=== PATIENT | female | born 1960 | race African-American/Black ===

== ENCOUNTER 2016-12-23 11:53 | Emergency (ER) | payer OTHER ==
[2016-12-23 11:58] VITALS: TEMP 98.8; BMI 21.4
--- NOTE | 2016-12-23 13:13 | PDOC ---
Attending Attestation - Resident Resident Name: Mark Staples - ED Attending Attestation I have performed the following: I have examined & evaluated the patient, The case was reviewed & discussed with the resident, I agree w/resident's findings & plan, Exceptions are as noted
--- NOTE | 2016-12-23 13:44 | PDOC ---
History of Present Illness - General Chief Complaint: Palpitations Stated Complaint: IRREGULAR HEARTBEAT, HEADACHE Time Seen by Provider: 12/23/16 13:01 History Source: Patient Exam Limitations: No Limitations - History of Present Illness Initial Comments: 12/23/16 13:18 Patient is a 56F with newly diagnosed diabetes (on metformin) here today complaining with chest palpitations for the past 24 hours. She describes intermittent episodes of palpitations, which she further describes as feeling like her heart is missing a beat. She denies associated nausea, vomiting, fevers , chills, shortness of breath and chest pain. She does complain of an associated headache for the past 24 hours. She does not remember the onset of the headache and it's relieved with palpation. Past History - Past Medical History Allergies/Adverse Reactions: Allergies Allergy/AdvReac Type Severity Reaction Status Date / Time sulfamethoxazole Allergy Verified 12/23/16 11:54 [From Bactrim] trimethoprim [From Bactrim] Allergy Verified 12/23/16 11:54 Home Medications: Ambulatory Orders Metformin HCl 500 mg PO DAILY 12/23/16 COPD: No Diabetes: Yes Other medical history: SCIATICA - Suicide/Smoking/Psychosocial Hx Smoking History: Smoker current status UNK Information on smoking cessation initiated: No Hx Alcohol Use: No Drug/Substance Use Hx: No Substance Use Type: None Review of Systems - Review of Systems Comments:: 12/23/16 13:44 GENERAL/CONSTITUTIONAL: No fever or chills. No weakness. HEAD, EYES, EARS, NOSE AND THROAT: No change in vision. No ear pain or discharge. No sore throat. CARDIOVASCULAR: No chest pain or shortness of breath RESPIRATORY: No cough, wheezing, or hemoptysis. GASTROINTESTINAL: No nausea, vomiting, diarrhea or constipation. GENITOURINARY: No dysuria, frequency, or change in urination. MUSCULOSKELETAL: No joint or muscle swelling or pain. No neck or back pain. SKIN: No rash NEUROLOGIC: No headache, vertigo, loss of consciousness, or change in strength/ sensation. ENDOCRINE: No increased thirst. No abnormal weight change HEMATOLOGIC/LYMPHATIC: No anemia, easy bleeding, or history of blood clots. ALLERGIC/IMMUNOLOGIC: No hives or skin allergy. *Physical Exam - Vital Signs Last Vital Signs Temp Pulse Resp BP Pulse Ox 98.8 F 98 H 18 158/81 100 12/23/16 11:55 12/23/16 11:55 12/23/16 11:55 12/23/16 11:55 12/23/16 11:55 - Physical Exam Comments: 12/23/16 13:46 GENERAL: Awake, alert, and fully oriented, in no acute distress HEAD: No signs of trauma, normocephalic, atraumatic EYES: PERRLA, EOMI, sclera anicteric, conjunctiva clear ENT: Auricles normal inspection, hearing grossly normal, nares patent, oropharynx clear without exudates. Moist mucosa NECK: Normal ROM, supple, no lymphadenopathy, JVD, or masses LUNGS: No distress, speaks full sentences, clear to auscultation bilaterally HEART: Regular rate and rhythm, normal S1 and S2, no murmurs, rubs or gallops, peripheral pulses normal and equal bilaterally. ABDOMEN: Soft, nontender, normoactive bowel sounds. No guarding, no rebound. No masses EXTREMITIES: Normal inspection, Normal range of motion, no edema. No clubbing or cyanosis. NEUROLOGICAL: Cranial nerves II through XII grossly intact. Normal speech, normal gait, no focal sensorimotor deficits SKIN: Warm, Dry, normal turgor, no rashes or lesions noted. ED Treatment Course - LABORATORY CBC & Chemistry Diagram: 12/23/16 13:13 12/23/16 13:13 - RADIOLOGY Radiology Studies Ordered: Category Date Time Status CHEST PA & LAT [RAD] Stat Radiology 12/23/16 13:09 Ordered Medical Decision Making - Medical Decision Making 12/23/16 13:46 56F with history of DM here today with palpitations. Vital signs stable and normal. History atypical for ACS. Will do heart workup. EKG shows normal sinus arrhythmia with no st elevatins, depressions or t wave abnormalities. Normal intervals. Reassuring EKG. 12/23/16 14:16 CXR shows no acute cardiopulmonary process. 12/23/16 14:17 Laboratory Tests 12/23/16 12/23/16 13:13 13:13 WBC 8.5 Hgb 13.1 Hct 39.8 Plt Count 336 D Troponin I < 0.02 CBC normal. Trop negative. CMP shows glucose in low 200s. TSH pending. Patient is felling better. *DC/Admit/Observation/Transfer Diagnosis at time of Disposition: Palpitations - Discharge Dispostion Disposition: HOME Condition at time of disposition: Good Admit: No - Referrals Referrals: Sree Wilson [Primary Care Provider] - - Patient Instructions Printed Discharge Instructions: DI for Palpitations Additional Instructions: Please see your PCP this week. Please return if you have any new, worsening or concerning symptoms. -Dr Staples - Post Discharge Activity
[2016-12-23 14:00] LABS: BASOPHIL 0.6 % (0-2.0); EOSINOPHIL 0.6 % (0-4.5); MCH 30.4 pg (25.7-33.7); MEAN CELL VOLUME 92.1 fl (80-96); MEAN PLT VOLUME 8.3 fl (7.5-11.1); NEUTROPHILS 55.5 % (42.8-82.8); PLATELET COUNT 336 K/MM3 (134-434); RDW 14.3 % (11.6-15.6); WHITE BLOOD COUNT 8.5 K/mm3 (4.0-10.0)
[2016-12-23 14:02] LABS: ALBUMIN 4.1 g/dl (3.4-5.0); ANION GAP 12 (8-16); BILIRUBIN,TOTAL 0.9 mg/dL (0.2-1.0); CALCIUM 8.9 mg/dL (8.5-10.1); CO2 26 mmol/L (21-32); CREATININE 0.8 mg/dL (0.55-1.02); GLUCOSE,RANDOM 233 mg/dL (74-106); SGOT/AST 27 U/L (15-37); SGPT/ALT 79 U/L (12-78); TOT PROT 8.2 g/dl (6.4-8.2)
[2016-12-23 14:05] LABS: ALK PHOS 112 U/L (45-117); CPK 65 IU/L (26-192); TROPONIN I < 0.02 ng/ml (0.00-0.05)
[2016-12-23 14:59] LABS: THYROID STIMULATING HORMONE 1.52 uIU/ml (0.358-3.74)
[2016-12-23 15:48] VITALS: BP 144/64; PULSE 91
--- NOTE | 2016-12-23 17:23 | EKG ---
Test Reason : Blood Pressure : / mmHG Vent. Rate : 082 BPM Atrial Rate : 082 BPM P-R Int : 158 ms QRS Dur : 068 ms QT Int : 384 ms P-R-T Axes : 082 072 071 degrees QTc Int : 448 ms SINUS RHYTHM WITH MARKED SINUS ARRHYTHMIA BIATRIAL ENLARGEMENT ABNORMAL ECG WHEN COMPARED WITH ECG OF 19-AUG-2013 00:49, T WAVE AMPLITUDE HAS DECREASED IN LATERAL LEADS Confirmed by COMFORT RODARTE, WILDER ([id number]) on 12/23/2016 5:23:25 PM Referred By: Confirmed By:WILDER MOYER MD
== END 2016-12-23 15:50 | disposition home or self-care (01) ==
LOC: JER 11:53
DX: R00.2 Palpitations (principal); E11.9 Type 2 diabetes mellitus without complications; Z79.84 Long term (current) use of oral hypoglycemic drugs
CPT/HCPCS: 36415; 71020-TC; 80053; 82550; 84443; 84484; 85025; 93005; 93010; 99285-25

== ENCOUNTER 2018-03-07 10:24 | Emergency (ER) | payer SELFPAY ==
[2018-03-07 10:28] VITALS: TEMP 97.8; BMI 24.7
--- NOTE | 2018-03-07 10:54 | PDOC ---
Attending Attestation - HPI HPI: 03/07/18 11:02 The patient is a year 57 old female, with a significant past medical history of DM (on metformin), who presents to the emergency department with nausea, vomiting, and loose stool. that began this morning around 6:00 am. The patient reports feeling well yesterday but when she woke up this morning to have a bowel movement, she felt a sudden onset of nausea, followed by an episode of vomiting, nonbloody. The patient states she has experienced several episodes of vomiting today, as well as several episodes of soft loose stool. The patient reports diaphoresis during vomiting episodes. The patient notes abdominal pain that she only experiences after vomiting. The patient reports she cant tolerate PO intake and has not taken her medication secondary to vomiting. The patient also reports a headache, and sick contact, with her who had a cold earlier this week. She denies recent fevers, body aches, coughing, or wheezing. She denies recent constipation. She denies recent dysuria, frequency, urgency or hematuria. She denies recent chest pain or shortness of breath. She denies recent travel Allergies: sulfamethoxazole, trimethoprim <Dizenzo,Marsha - Last Filed: 03/07/18 12:14> - Resident Resident Name: Rashmi Lew - ED Attending Attestation I have performed the following: I have examined & evaluated the patient, The case was reviewed & discussed with the resident, I agree w/resident's findings & plan, Exceptions are as noted - Physicial Exam PE: 03/08/18 10:12 see above - Medical Decision Making 03/07/18 10:54 57y F hx of DM, presents with n/v since this AM with a few episodes of loose stool. endorses intermittent abd pain associated w vomitin gubt then resolves - no associated fever/chills, cp, sob, guevara, back pain, numbnes/tingling/weakness, recent travel. GENERAL: The patient is awake, alert, and fully oriented, Nontoxic - in no acute distress. HEAD: Normocephalic, atraumatic. EYES: extraocular movements intact, sclera anicteric, conjunctiva clear. ENT: Normal voice, Moist mucous membranes. NECK: Normal range of motion, supple LUNGS: Breath sounds equal, clear to auscultation bilaterally. No wheezes, no rhonchi, no rales. HEART: Regular rate and rhythm, normal S1 and S2 without murmur, rub or gallop. ABDOMEN: Soft, nontender, normoactive bowel sounds. No guarding, no rebound. No CVA tenderness EXTREMITIES: Normal range of motion, no edema. NEUROLOGICAL: No facial assymetry, Normal speech, PSYCH: Normal mood, normal affect. SKIN: Warm, Dry, normal turgor, ddx - enteritis, gastritis, consider cardiac etiology (episode occurred around 5am) will ck labs, fluids/zofran for sypmtmatic relief ekg/trop to r/o cardiac etiology will reasses 03/07/18 12:36 pt feeling improvd tolerating oral intake labs/lytes reviewd, bgm slightly elevated awaiting UA <Zach Armstrong - Last Filed: 03/08/18 10:12> Heart Score/ECG Review - ECG Impressions Comment:: 03/07/18 13:09 Twelve-lead EKG was performed and reviewed by me. There is normal sinus rhythm with a normal rate. Rate of 63 The axis is normal. The intervals are normal. There is normal R wave progression No ST changes suggestive of acute ischemia Marked Sinus arrhythmia <Zach Armstrong - Last Filed: 03/08/18 10:12> Attestations - Attestations 03/07/18 11:19 Documentation prepared by Marsha Ruffin, acting as medical lab technician for Zach Armstrong MD. <Marsha Ruffin - Last Filed: 03/07/18 12:14>
[2018-03-07] MEDS ORDERED: ONDANSETRON 4 MG/2 ML VIAL IVPUSH ONE (10:55)
[2018-03-07] MEDS ORDERED: ONDANSETRON 4 MG/2 ML VIAL ONE (10:55)
[2018-03-07] MEDS ORDERED: SODIUM CHLORIDE 0.9% 500 ML INFUS.BAG IV ONE (10:55)
--- NOTE | 2018-03-07 11:04 | PDOC ---
History of Present Illness - General Chief Complaint: Vomiting/Diarrhea Stated Complaint: VOMITING/DIARRHEA Time Seen by Provider: 03/07/18 10:30 - History of Present Illness Initial Comments: Princess Arias is a 57yo woman with a PMH of NIDDM who presents with nausea, vomiting, and loose stool since this morning. She reports that she woke up around 530 am to use the bathroom, and she started to feel nauseated. She had one episode of NBNB vomiting followed by multiple episodes of dry heaving or vomiting "bile" since then. She does report some mild diffuse abdominal pain and headache that she feels are secondary to vomiting. She tried to take ibuprofen at home but could not keep it down. She also reports trying to drink water, but she had an episode of emesis about 5 minutes later. Ms Arias denies recent sick contacts, change in diet (or unusual foods), recent travel, or new medications. She has been compliant with her metformin and says that her glucose is usually in the 120's at home, though she checks infrequently. She denies recent or frequent alcohol use. She denies chest pain, shortness of breath, association of symptoms with exertion, frequent/watery stools. Past History - Past Medical History Allergies/Adverse Reactions: Allergies Allergy/AdvReac Type Severity Reaction Status Date / Time sulfamethoxazole Allergy Verified 03/07/18 10:25 [From Bactrim] trimethoprim [From Bactrim] Allergy Verified 03/07/18 10:25 Home Medications: Ambulatory Orders metFORMIN HCL [Metformin HCl] 500 mg PO DAILY 12/23/16 Ondansetron HCl 4 mg PO TID PRN #12 tablet 03/07/18 COPD: No Diabetes: Yes - Immunization History Immunization Up to Date: Yes - Suicide/Smoking/Psychosocial Hx Smoking History: Never smoked Information on smoking cessation initiated: No Hx Alcohol Use: No Drug/Substance Use Hx: No Substance Use Type: None Review of Systems - Review of Systems Comments:: General: No fevers, no chills, no weight or appetite change, no malaise HEENT: No changes in vision, no changes in hearing, no congestion, no sore throat CV: No chest pain, no palpitations, no LE edema Pulm: No SOB, no cough, no wheezing GI: +n/v, no change in bowel habits, no melena : No frequency, no urgency, no dysuria Musc: No back pain, no joint swelling, no recent injury Skin: No rash, no lesions, no erythema Endo: No excessive thirst, no heat/cold intolerance Heme: No unusual bruising or bleeding, no swollen glands Neuro: No syncope, no numbness/tingling, no focal weakness Vasc: No claudication Psych: No recent change in mood, no SI or HI *Physical Exam - Vital Signs Last Vital Signs Temp Pulse Resp BP Pulse Ox 97.8 F 84 17 157/78 100 03/07/18 10:25 03/07/18 10:25 03/07/18 10:25 03/07/18 10:25 03/07/18 10:25 - Physical Exam Comments: General: No acute distress, uncomfortable HEENT: PERRL, EOMI, MMM, voice normal, normal neck ROM, no LAD Cards: RRR, no murmur appreciated Pulm: Comfortable on room air, clear to auscultation bilaterally Abd: Soft, nontender, nondistended : No CVA tenderness Ext: Atraumatic. No LE edema. ROM intact. Strength 5/5 and equal bilaterally Vasc: Extremities WWP. Skin: Normal color, no rashes or lesions Neuro: A&Ox3, CN grossly intact, normal speech, motor/sensory grossly intact and symmetric Psych: Mood appropriate to situation Moderate Sedation - Procedure Monitoring Vital Signs: Procedure Monitoring Vital Signs Temperature 97.8 F 03/07/18 10:25 Pulse Rate 84 03/07/18 10:25 Respiratory Rate 17 03/07/18 10:25 Blood Pressure 157/78 03/07/18 10:25 O2 Sat by Pulse Oximetry (%) 100 03/07/18 10:25 ED Treatment Course - LABORATORY CBC & Chemistry Diagram: 03/07/18 11:08 03/07/18 11:12 Medical Decision Making - Medical Decision Making 03/07/18 10:55 Princess Arias is a 57yo woman with a PMH of NIDDM who presents with nausea and vomiting since 5:30am. She does report a history of "gallbladder problems" but states that this is completely different. - DDx includes gastritis, hyperglycemia, cholecystitis, pancreatitis. - No chest pain, no SOB, no cardiac history concerning for cardiac causes of vomiting - No concern for SBO despite h/o as she continues to have BM - CBC, CMP, mag, phos, lipase - 1L NS and IV zofran for symptoms 03/07/18 11:18 - Discussed with Dr Armstrong, will add on troponin and EKG as she now reports diaphoresis earlier this morning. Symptoms are not exertional and w/o chest pain or SOB, so unlikely to be cardiac in nature, but will r/o given patient's age and gender. 03/07/18 12:34 - EKG completed. NSR w/ HR 63. Marked respiratory variation but other bal normal. - Labs reviewed. Notable for glucose 233. Trop 0.04 is WNL. - Patient feels significantly improved after zofran and IV fluids. Attempting PO challenge currently. Will d/c home if able to tolerate PO intake. Discussed with Dr Armstrong. Rashmi Lew PGY1 *DC/Admit/Observation/Transfer Diagnosis at time of Disposition: Vomiting - Discharge Dispostion Condition at time of disposition: Stable Decision to Admit order: No - Prescriptions Prescriptions: Ondansetron HCl 4 mg PO TID PRN #12 tablet PRN Reason: Nausea And/Or Vomiting - Referrals [place] [facility] [place] [facility] [place] Group] - Patient Instructions Printed Discharge Instructions: DI for Vomiting -- Adult Additional Instructions: Discharge Instructions: - You were seen in the emergency department for vomiting. You had blood tests to check for infection or electrolyte abnormalities, but the results were normal. You also had an EKG and blood test to check your heart, and these were normal as well. There were also no abnormalities on your urine test. - Your vomiting is most likely due to a virus or gastritis (stomach irritation) . This should improve within a few days. You have been prescribed a nausea medication that can be taken up to 8 times daily if needed. - Make sure you are staying hydrated at home. It is recommended that you drink clear fluids such as water, juice, tea, or broth. Avoid dairy products and caffeine. - Do not worry about eating as long as you stay hydrated. It is OK if you do not eat for a day or so. When you feel ready to eat again, avoid spicy or greasy foods. - Make an appointment to see your regular doctor within the next week if your symptoms do not improve. If you do not have a regular doctor, you have been referred to the [facility] internal medicine resident clinic. - Seek immediate medical care if your symptoms worsen, you are unable to keep any food or liquids down without vomiting, you start vomiting blood, you become lightheaded, you stop producing urine, or you have any medical emergency. - Post Discharge Activity
[2018-03-07 11:22] LABS: BASO % 0.8 % (0-2.0); EOS % 0.2 % (0-4.5); HEMATOCRIT 39.5 % (32.4-45.2); HEMOGLOBIN 13.3 GM/dL (10.7-15.3); LYMPH % 15.4 % (8-40); MCH 31.2 pg (25.7-33.7); MCHC 33.8 g/dl (32.0-36.0); MEAN CELL VOLUME 92.2 fl (80-96); MEAN PLT VOLUME 7.1 fl (7.5-11.1); MONO % 3.8 % (3.8-10.2); NEUT % 79.8 % (42.8-82.8); PLATELET COUNT 314 K/MM3 (134-434); RBC 4.28 M/mm3 (3.60-5.2); RDW 15.5 % (11.6-15.6); WHITE BLOOD COUNT 11.2 K/mm3 (4.0-10.0)
[2018-03-07 12:01] LABS: ALBUMIN 3.9 g/dl (3.4-5.0); ALK PHOS 148 U/L (45-117); ANION GAP 8 MMOL/L (8-16); BILIRUBIN,TOTAL 0.6 mg/dL (0.2-1); BLOOD UREA NITROGEN 9 mg/dL (7-18); CALCIUM 8.7 mg/dL (8.5-10.1); CHLORIDE 103 mmol/L (98-107); CO2 28 mmol/L (21-32); CREATININE 0.8 mg/dL (0.55-1.3); GLUCOSE,RANDOM 232 mg/dL (74-106); LIPASE 117 U/L (73-393); PHOSPHOROUS 2.9 mg/dL (2.5-4.9); POTASSIUM 3.9 mmol/L (3.5-5.1); SGOT/AST 15 U/L (15-37); SGPT/ALT 14 U/L (13-61); SODIUM 139 mmol/L (136-145)
[2018-03-07 14:25] VITALS: BP 151/74; PULSE 85
--- NOTE | 2018-03-08 11:23 | EKG ---
Test Reason : Blood Pressure : / mmHG Vent. Rate : 063 BPM Atrial Rate : 063 BPM P-R Int : 160 ms QRS Dur : 070 ms QT Int : 430 ms P-R-T Axes : 076 058 071 degrees QTc Int : 440 ms SINUS RHYTHM WITH MARKED SINUS ARRHYTHMIA WHEN COMPARED WITH ECG OF 23-DEC-2016 13:12, NO SIGNIFICANT CHANGE WAS FOUND Confirmed by ELIU GABRIEL MD ([id number]) on 03/08/2018 11:23:14 AM Referred By: Confirmed By:ELIU GABRIEL MD
== END 2018-03-07 14:25 | disposition home or self-care (01) ==
LOC: JER 10:24
PROC: 3E033GC Introduction of Other Therapeutic Substance into Peripheral Vein, Percutaneous Approach (ICD-10-PCS; principal; 2018-03-07)
DX: R11.10 Vomiting, unspecified (principal); E11.9 Type 2 diabetes mellitus without complications; Z79.84 Long term (current) use of oral hypoglycemic drugs
CPT/HCPCS: 36415; 80053; 83690; 83735; 84100; 84484; 85025; 93005; 93010; 96374; 99282-25

== ENCOUNTER 2020-04-17 00:28 | Inpatient (IN) | payer OTHER ==
[2020-04-17] MEDS ORDERED: ONDANSETRON 4 MG/2 ML VIAL IVPUSH ONE (02:26)
[2020-04-17] MEDS ORDERED: ACETAMINOPHEN 1000 MG/100 ML VIAL (NON FORMULARY) IVPB ONE (02:26)
[2020-04-17] MEDS ORDERED: MAG HYDROX/AL HYDROX/SIMETH 30 ML UNIT-DOSE CUP PO ONE (02:26)
[2020-04-17] MEDS ORDERED: SODIUM CHLORIDE 1,000 ML IV STA (02:26)
[2020-04-17] MEDS ORDERED: FAMOTIDINE 20 MG/50 ML IVPB 20 MG/50 ML MG IVPB ONE ×3 (02:26→10:11)
[2020-04-17] MEDS ORDERED: MAG HYDROX/AL HYDROX/SIMETH 30 ML UNIT-DOSE CUP ONE (02:48)
[2020-04-17] MEDS ORDERED: ONDANSETRON 4 MG/2 ML VIAL ONE (02:48)
[2020-04-17] MEDS ORDERED: ACETAMINOPHEN INJECTION 100 ML IVPB ONE (02:48)
[2020-04-17 03:09] LABS: BASO % 0.4 % (0-2.0); EOS % 0.2 % (0-4.5); HEMATOCRIT 38.8 % (32.4-45.2); HEMOGLOBIN 13.1 GM/dL (10.7-15.3); LYMPH % 15.8 % (8-40); MCH 30.4 pg (25.7-33.7); MCHC 33.7 g/dl (32.0-36.0); MEAN CELL VOLUME 90.3 fl (80-96); MEAN PLT VOLUME 8.2 fl (7.5-11.1); MONO % 3.3 % (3.8-10.2); NEUT % 80.3 % (42.8-82.8); PLATELET COUNT 279 K/MM3 (134-434); RDW 14.6 % (11.6-15.6); WHITE BLOOD COUNT 9.1 K/mm3 (4.0-10.0)
[2020-04-17 03:27] LABS: CHLORIDE 99 mmol/L (98-107); POTASSIUM 3.8 mmol/L (3.5-5.1); SODIUM 137 mmol/L (136-145)
[2020-04-17 03:29] LABS: ALBUMIN 3.8 g/dl (3.4-5.0); ANION GAP 7 MMOL/L (8-16); CALCIUM 9.1 mg/dL (8.5-10.1); CO2 31 mmol/L (21-32)
[2020-04-17 03:30] LABS: BLOOD UREA NITROGEN 14.5 mg/dL (7-18); GLUCOSE,RANDOM 264 mg/dL (74-106); LIPASE 104 U/L (73-393)
[2020-04-17 03:32] LABS: BILIRUBIN,DIRECT 1.8 mg/dL (0.0-0.2); SGOT/AST 771 U/L (15-37); SGPT/ALT 661 U/L (13-61)
[2020-04-17 03:34] LABS: TOT PROT 7.9 g/dl (6.4-8.2)
[2020-04-17 03:35] LABS: ALK PHOS 501 U/L (45-117)
[2020-04-17 03:37] LABS: EPI CELLS 8 /uL (0-25.1); HYALINE CASTS 1 /uL (0-3.1); URINE APPEARANCE CLEAR; URINE BACTERIA 129 /uL (0-1359); URINE BILIRUBIN 1+ (NEGATIVE); URINE COLOR DK YELLOW; URINE GLUCOSE (UA) 3+ (NEGATIVE); URINE KETONE 3+ (NEGATIVE); URINE LEUK ESTERASE TRACE (NEGATIVE); URINE NITRITE NEGATIVE (NEGATIVE); URINE PROTEIN TRACE (NEGATIVE); URINE RBC 94 /uL (0-23.9); URINE WBC 14 /uL (0-25.8)
[2020-04-17] MEDS ORDERED: KETOROLAC TROMETHAMINE 30 MG/1 ML VIAL IVPUSH ONE (05:07)
[2020-04-17] MEDS ORDERED: LACTATED RINGERS SOLUTION 1000 ML INFUS.BAG IV ONE (05:07)
[2020-04-17] MEDS ORDERED: KETOROLAC TROMETHAMINE 15 MG/ML VIAL ONE (05:16)
[2020-04-17] MEDS ORDERED: ONDANSETRON 4 MG/2 ML VIAL IM PRN (06:18)
[2020-04-17] MEDS ORDERED: KETOROLAC TROMETHAMINE 15 MG/ML VIAL IVPUSH PRN (06:18)
[2020-04-17] MEDS ORDERED: MAG HYDROX/AL HYDROX/SIMETH 30 ML UNIT-DOSE CUP PO PRN (06:19)
[2020-04-17 07:02] LABS: BASO % 0.6 % (0-2.0); EOS % 0.2 % (0-4.5); HEMATOCRIT 36.5 % (32.4-45.2); HEMOGLOBIN 12.4 GM/dL (10.7-15.3); LYMPH % 24.1 % (8-40); MCH 30.6 pg (25.7-33.7); MCHC 34.1 g/dl (32.0-36.0); MEAN CELL VOLUME 89.9 fl (80-96); MEAN PLT VOLUME 7.8 fl (7.5-11.1); MONO % 6.4 % (3.8-10.2); NEUT % 68.7 % (42.8-82.8); PLATELET COUNT 266 K/MM3 (134-434); RBC 4.06 M/mm3 (3.60-5.2); RDW 14.9 % (11.6-15.6); WHITE BLOOD COUNT 8.7 K/mm3 (4.0-10.0)
[2020-04-17 07:21] LABS: POTASSIUM 3.7 mmol/L (3.5-5.1)
[2020-04-17 07:24] LABS: CALCIUM 8.4 mg/dL (8.5-10.1)
[2020-04-17 07:25] LABS: ALBUMIN 3.4 g/dl (3.4-5.0); BLOOD UREA NITROGEN 12.4 mg/dL (7-18); MAGNESIUM 2.2 mg/dL (1.8-2.4)
[2020-04-17 07:28] LABS: CREATININE 0.9 mg/dL (0.55-1.3); PHOSPHOROUS 3.3 mg/dL (2.5-4.9)
[2020-04-17 07:29] LABS: BILIRUBIN,TOTAL 3.2 mg/dL (0.2-1); TOT PROT 7.2 g/dl (6.4-8.2)
[2020-04-17] MEDS: SODIUM CHLORIDE 1,000 ML IV SCH ×2 (08:00→20:02)
[2020-04-17] MEDS: INSULIN SLIDING SCALE (NOVOLOG) 1 VIAL SQ SCH ×4 (08:49→21:47)
[2020-04-17] MEDS ORDERED: ENOXAPARIN NA (PORCINE) 40 MG/0.4 ML DISP.SYRIN SQ SCH (10:00)
[2020-04-17] MEDS: FAMOTIDINE 20 MG/50 ML IVPB 20 MG/50 ML MG IVPB SCH ×2 (10:15→21:47)
[2020-04-17 11:46] LABS: INR 1.09 (0.83-1.09); PROTHROMBIN TIME (PATIENT) 13.2 SEC (9.7-13.0)
[2020-04-17] MEDS: AMPICILLIN NA/SULBACTAM NA 1.5 GM in SODIUM CHLORIDE 100 ML IVPB SCH ×2 (13:20→21:23)
[2020-04-17 16:19] VITALS: BMI 27.6
[2020-04-17] MEDS ORDERED: AMPICILLIN NA/SULBACTAM NA 1.5 GM in SODIUM CHLORIDE 100 ML IVPB SCH (18:00)
[2020-04-17] MEDS ORDERED: SODIUM CHLORIDE 100 ML IVPB ONE (20:01)
[2020-04-17] MEDS ORDERED: AMPICILLIN NA/SULBACTAM NA 1.5 GM VIAL ONE (20:01)
[2020-04-18] MEDS ORDERED: AMPICILLIN NA/SULBACTAM NA 1.5 GM VIAL ONE ×3 (01:02→18:00)
[2020-04-18] MEDS ORDERED: SODIUM CHLORIDE 100 ML IVPB ONE ×3 (01:03→18:00)
[2020-04-18] MEDS: AMPICILLIN NA/SULBACTAM NA 1.5 GM in SODIUM CHLORIDE 100 ML IVPB SCH ×3 (01:42→18:04)
[2020-04-18] MEDS: SODIUM CHLORIDE 1,000 ML IV SCH (06:00)
[2020-04-18] MEDS: INSULIN SLIDING SCALE (NOVOLOG) 1 VIAL SQ SCH ×4 (06:02→21:25)
[2020-04-18 08:33] LABS: BASO % 0.2 % (0-2.0); EOS % 1.8 % (0-4.5); HEMATOCRIT 33.4 % (32.4-45.2); HEMOGLOBIN 11.2 GM/dL (10.7-15.3); LYMPH % 39.8 % (8-40); MCH 30.5 pg (25.7-33.7); MCHC 33.5 g/dl (32.0-36.0); MEAN CELL VOLUME 91.2 fl (80-96); MEAN PLT VOLUME 8.2 fl (7.5-11.1); MONO % 4.4 % (3.8-10.2); NEUT % 53.8 % (42.8-82.8); PLATELET COUNT 225 K/MM3 (134-434); RBC 3.67 M/mm3 (3.60-5.2); RDW 14.8 % (11.6-15.6); WHITE BLOOD COUNT 4.9 K/mm3 (4.0-10.0)
[2020-04-18 08:43] LABS: POTASSIUM 3.6 mmol/L (3.5-5.1)
[2020-04-18 08:45] LABS: BILIRUBIN,DIRECT 0.7 mg/dL (0.0-0.2)
[2020-04-18 08:46] LABS: CALCIUM 8.1 mg/dL (8.5-10.1)
[2020-04-18 08:48] LABS: MAGNESIUM 1.9 mg/dL (1.8-2.4)
[2020-04-18 08:49] LABS: CREATININE 0.7 mg/dL (0.55-1.3); PHOSPHOROUS 3.6 mg/dL (2.5-4.9)
[2020-04-18 08:51] LABS: BILIRUBIN,TOTAL 1.6 mg/dL (0.2-1); TOT PROT 6.2 g/dl (6.4-8.2)
[2020-04-18] MEDS: FAMOTIDINE 20 MG/50 ML IVPB 20 MG/50 ML MG IVPB SCH ×2 (10:26→21:35)
[2020-04-18] MEDS ORDERED: INSULIN (NOVOLOG) ASPART 100 UNITS/ML 10ML VIAL ONE (21:19)
[2020-04-19] MEDS ORDERED: SODIUM CHLORIDE 100 ML IVPB ONE ×2 (01:17→08:41)
[2020-04-19] MEDS ORDERED: AMPICILLIN NA/SULBACTAM NA 1.5 GM VIAL ONE ×2 (01:17→08:40)
[2020-04-19] MEDS: AMPICILLIN NA/SULBACTAM NA 1.5 GM in SODIUM CHLORIDE 100 ML IVPB SCH ×2 (01:21→10:09)
[2020-04-19] MEDS: SODIUM CHLORIDE 1,000 ML IV SCH ×2 (05:22→08:51)
[2020-04-19] MEDS: INSULIN SLIDING SCALE (NOVOLOG) 1 VIAL SQ SCH ×4 (06:18→21:05)
[2020-04-19 07:28] LABS: HEMATOCRIT 32.9 % (32.4-45.2); HEMOGLOBIN 11.1 GM/dL (10.7-15.3); MCH 30.3 pg (25.7-33.7); MCHC 33.7 g/dl (32.0-36.0); MEAN CELL VOLUME 90.1 fl (80-96); MEAN PLT VOLUME 8.2 fl (7.5-11.1); PLATELET COUNT 236 K/MM3 (134-434); RBC 3.65 M/mm3 (3.60-5.2); RDW 14.8 % (11.6-15.6); WHITE BLOOD COUNT 6.2 K/mm3 (4.0-10.0)
[2020-04-19 07:30] LABS: INR 1.13 (0.83-1.09); PROTHROMBIN TIME (PATIENT) 13.8 SEC (9.7-13.0)
[2020-04-19 07:44] LABS: MAGNESIUM 1.7 mg/dL (1.8-2.4)
[2020-04-19] MEDS ORDERED: MAGNESIUM SULF 50% (8.12 MEQ/2 ML-1 GM VIAL) IVPB ONE (07:45)
[2020-04-19 07:48] LABS: PHOSPHOROUS 3.6 mg/dL (2.5-4.9)
[2020-04-19 08:10] LABS: POTASSIUM 3.5 mmol/L (3.5-5.1)
[2020-04-19 08:12] LABS: ALBUMIN 2.9 g/dl (3.4-5.0); CALCIUM 8.5 mg/dL (8.5-10.1)
[2020-04-19 08:16] LABS: CREATININE 0.7 mg/dL (0.55-1.3)
[2020-04-19 08:17] LABS: TOT PROT 6.1 g/dl (6.4-8.2)
[2020-04-19] MEDS ORDERED: BENZOIN/ALOE VERA/STORAX/TOLU 58 ML BOTTLE ONE (13:06)
[2020-04-19] MEDS ORDERED: BUPIVACAINE HCL 100 ML ONE (13:06)
[2020-04-19] MEDS ORDERED: LIDOCAINE HCL/PF 2% SDV 5ML VIAL ONE (13:13)
[2020-04-19] MEDS ORDERED: SEVOFLURANE 250 ML BTL ONE (13:13)
[2020-04-19] MEDS ORDERED: SUCCINYLCHOLINE CHLORIDE 200 MG/10 ML SYRINGE ONE (13:14)
[2020-04-19] MEDS ORDERED: ROCURONIUM BROMIDE 100 MG/10 ML VIAL ONE ×2 (13:14→13:38)
[2020-04-19] MEDS ORDERED: PROPOFOL 20 ML ONE (13:14)
[2020-04-19] MEDS ORDERED: MIDAZOLAM HCL 2 MG/2 ML SINGLE DOSE VIAL ONE (13:14)
[2020-04-19] MEDS ORDERED: DEXAMETHASONE SOD PHOSPHATE 4 MG/1 ML VIAL ONE (14:06)
[2020-04-19] MEDS ORDERED: ONDANSETRON 4 MG/2 ML VIAL ONE (14:06)
[2020-04-19] MEDS ORDERED: KETOROLAC TROMETHAMINE 30 MG/1 ML VIAL ONE (14:06)
[2020-04-19] MEDS ORDERED: LABETALOL HCL 5 MG/1 ML (100MG/20 ML VIAL) ONE ×2 (14:06→14:08)
[2020-04-19] MEDS ORDERED: BUPIVACAINE HCL/PF 0.5% (5 MG/ML) 30 ML VIAL IJ ONE ×2 (14:17)
[2020-04-19] MEDS ORDERED: DESFLURANE GAS 240 ML BOTTLE IH ONE (14:34)
[2020-04-19] MEDS ORDERED: NEOSTIGMINE METHYLSULFATE 0.5 MG/ML - 10 ML MDV ONE (14:49)
[2020-04-19] MEDS: FAMOTIDINE 20 MG/50 ML IVPB 20 MG/50 ML MG IVPB SCH ×2 (15:05→21:06)
[2020-04-19] MEDS ORDERED: SODIUM CHLORIDE 1,000 ML IV SCH (15:32)
[2020-04-19] MEDS ORDERED: ONDANSETRON 4 MG/2 ML VIAL IM PRN (15:32)
[2020-04-19] MEDS ORDERED: oxyCODONE HCL 5 MG TABLET PO PRN ×2 (16:13)
[2020-04-19] MEDS ORDERED: AMPICILLIN NA/SULBACTAM NA 1.5 GM in SODIUM CHLORIDE 100 ML IVPB SCH (18:00)
[2020-04-19] MEDS: MAG HYDROX/AL HYDROX/SIMETH 30 ML UNIT-DOSE CUP PO PRN (23:46)
[2020-04-20] MEDS: INSULIN SLIDING SCALE (NOVOLOG) 1 VIAL SQ SCH ×4 (06:09→21:49)
[2020-04-20 07:11] LABS: HEMATOCRIT 33.2 % (32.4-45.2); HEMOGLOBIN 11.3 GM/dL (10.7-15.3); MCH 30.9 pg (25.7-33.7); MEAN CELL VOLUME 90.8 fl (80-96); PLATELET COUNT 239 K/MM3 (134-434); RBC 3.66 M/mm3 (3.60-5.2); WHITE BLOOD COUNT 7.7 K/mm3 (4.0-10.0)
[2020-04-20 07:30] LABS: POTASSIUM 3.7 mmol/L (3.5-5.1)
[2020-04-20 07:34] LABS: CALCIUM 8.1 mg/dL (8.5-10.1)
[2020-04-20 07:37] LABS: CREATININE 0.8 mg/dL (0.55-1.3); PHOSPHOROUS 4.4 mg/dL (2.5-4.9)
[2020-04-20 07:38] LABS: BILIRUBIN,TOTAL 0.9 mg/dL (0.2-1)
[2020-04-20 07:39] LABS: TOT PROT 6.3 g/dl (6.4-8.2)
[2020-04-20] MEDS: FAMOTIDINE 20 MG/50 ML IVPB 20 MG/50 ML MG IVPB SCH ×2 (09:54→21:49)
[2020-04-20] MEDS: MAG HYDROX/AL HYDROX/SIMETH 30 ML UNIT-DOSE CUP PO PRN (17:08)
[2020-04-20] MEDS ORDERED: traMADol HCL 50 MG TABLET PO PRN (17:58)
[2020-04-20] MEDS ORDERED: ACETAMINOPHEN 325 MG TABLET (FP) PO PRN (17:59)
[2020-04-21] MEDS: INSULIN SLIDING SCALE (NOVOLOG) 1 VIAL SQ SCH ×2 (06:02→12:37)
[2020-04-21 07:56] LABS: HEMATOCRIT 33.1 % (32.4-45.2); HEMOGLOBIN 10.9 GM/dL (10.7-15.3); MCH 30.3 pg (25.7-33.7); MCHC 33.1 g/dl (32.0-36.0); MEAN CELL VOLUME 91.6 fl (80-96); MEAN PLT VOLUME 7.8 fl (7.5-11.1); PLATELET COUNT 236 K/MM3 (134-434); RBC 3.61 M/mm3 (3.60-5.2); RDW 15.1 % (11.6-15.6); WHITE BLOOD COUNT 7.5 K/mm3 (4.0-10.0)
[2020-04-21 08:10] LABS: POTASSIUM 3.8 mmol/L (3.5-5.1)
[2020-04-21 08:14] LABS: BLOOD UREA NITROGEN 6.4 mg/dL (7-18); CALCIUM 8.3 mg/dL (8.5-10.1)
[2020-04-21 08:16] LABS: ALBUMIN 2.8 g/dl (3.4-5.0)
[2020-04-21 08:18] LABS: CREATININE 0.8 mg/dL (0.55-1.3)
[2020-04-21] MEDS: FAMOTIDINE 20 MG/50 ML IVPB 20 MG/50 ML MG IVPB SCH (09:57)
[2020-04-21 14:10] VITALS: BP 135/85; PULSE 60; TEMP 98.5
== END 2020-04-21 15:04 | disposition home or self-care (01) | DRG 263 ==
LOC: JER 00:28 → JERBED 06:10 → J7W 15:09
PROVIDERS: ADMIT Hospitalist
PROC: 0FT44ZZ Resection of Gallbladder, Percutaneous Endoscopic Approach (ICD-10-PCS; principal; 2020-04-20)
DX: K80.43 Calculus of bile duct with acute cholecystitis with obstruction (principal); R11.2 Nausea with vomiting, unspecified; E11.9 Type 2 diabetes mellitus without complications
CPT/HCPCS: 36415; 71045-TC-FY; 74177-TC; 74181-TC; 80053; 80074; 81003; 82150; 82248; 82550; 82962; 83690; 83735; 84100; 84484; 85025; 85027; 85610; 86140; 86850; 86900; 86901; 87040; 87086; 88304-TC; 93005; 93010; 94760; 99285-25; C9803; J0131; Q9967; U0003

== ENCOUNTER 2020-07-19 05:01 | Day surgery (SDC) | payer OTHER ==
[2020-07-18 13:05] VITALS: BMI 26.8
[2020-07-19] MEDS ORDERED: KETAMINE HCL 200 MG/20 ML VIAL ONE (07:39)
[2020-07-19 08:42] VITALS: TEMP 98
[2020-07-19 08:55] VITALS: PULSE 74
[2020-07-19 09:26] VITALS: BP 123/60
== END 2020-07-19 09:47 | disposition home or self-care (01) ==
LOC: JASU-ENDO 05:01
PROVIDERS: ATTEND Internal Medicine Gastroenterology
PROC: 0DBP8ZX Excision of Rectum, Via Natural or Artificial Opening Endoscopic, Diagnostic (ICD-10-PCS; 2020-07-19)
PROC: 0DBP8ZX Excision of Rectum, Via Natural or Artificial Opening Endoscopic, Diagnostic (ICD-10-PCS; principal; 2020-07-19 08:00)
DX: Z12.11 Encounter for screening for malignant neoplasm of colon (principal); K62.1 Rectal polyp; K64.8 Other hemorrhoids; K59.89 Other specified functional intestinal disorders; Z88.0 Allergy status to penicillin; Z83.71 Family history of colonic polyps